=== PATIENT | female | born 1970 | race Caucasian/White ===

== ENCOUNTER → 2017-04-24 | Outpatient (CLI) | payer OTHER | LOC: BMCIMAGING 07:26 | PROVIDERS: ATTEND Family Medicine | DX: N94.6 Dysmenorrhea, unspecified (principal); R93.8 Abnormal findings on diagnostic imaging of other specified body structures ==

== ENCOUNTER → 2017-07-14 | Outpatient (CLI) | payer OTHER | LOC: FIMAGING 08:25 | PROVIDERS: ATTEND Surgery | DX: Z12.31 Encounter for screening mammogram for malignant neoplasm of breast (principal) | CPT/HCPCS: G0202 ==

== ENCOUNTER → 2017-07-21 | Outpatient (CLI) | payer OTHER | LOC: FIMAGING 08:59 | PROVIDERS: ATTEND Surgery | DX: R92.8 Other abnormal and inconclusive findings on diagnostic imaging of breast (principal) ==

== ENCOUNTER → 2018-04-26 | Outpatient (CLI) | payer OTHER | LOC: FIMAGING 07:32 | PROVIDERS: ATTEND Surgery | DX: Z12.31 Encounter for screening mammogram for malignant neoplasm of breast (principal) ==

== ENCOUNTER → 2018-06-06 | Outpatient (CLI) | payer OTHER | LOC: FIMAGING 15:33 | PROVIDERS: ATTEND Surgery | DX: R92.8 Other abnormal and inconclusive findings on diagnostic imaging of breast (principal); R92.0 Mammographic microcalcification found on diagnostic imaging of breast ==

== ENCOUNTER → 2018-07-06 | Day surgery (SDC) | payer OTHER ==
[~2018-07-06] MED LIST: LIDOCAINE 1% 300 MG/30 ML SDV ONE
== END | disposition home or self-care (01) ==
LOC: FIMAGING 07:41
PROVIDERS: ATTEND Surgery
PROC: 0HHT3YZ Insertion of Other Device into Right Breast, Percutaneous Approach (ICD-10-PCS; principal; 2018-07-06)
DX: N63.10 Unspecified lump in the right breast, unspecified quadrant (principal); R92.0 Mammographic microcalcification found on diagnostic imaging of breast

== ENCOUNTER → 2018-10-10 | Outpatient (CLI) | payer OTHER ==
[~2018-10-10] MED LIST changes: +GADOBUTROL 10 ML VIAL IVP ONE; -LIDOCAINE 1% 300 MG/30 ML SDV ONE
== END ==
LOC: FIMAGING 10:03
PROVIDERS: ATTEND Internal Medicine Hematology & Oncology
DX: Z13.71 Encounter for nonprocreative screening for genetic disease carrier status (principal); N60.81 Other benign mammary dysplasias of right breast; N60.11 Diffuse cystic mastopathy of right breast; N63.21 Unspecified lump in the left breast, upper outer quadrant
CPT/HCPCS: A9585; C8908

== ENCOUNTER → 2018-11-14 | Outpatient (CLI) | payer OTHER | LOC: FIMAGING 13:27 | PROVIDERS: ATTEND Internal Medicine Hematology & Oncology | DX: N63.22 Unspecified lump in the left breast, upper inner quadrant (principal); N60.81 Other benign mammary dysplasias of right breast ==